=== PATIENT | female | born 1965 | race Caucasian/White ===

== ENCOUNTER 2018-03-07 10:34 | Day surgery (SDC) | payer MEDICAID ==
[2018-02-27 11:50] LABS: CLARITY,URINE SLIGHTLY CLOUDY (Clear); COLOR,URINE YELLOW (Yellow); GLUCOSE, URINE NEGATIVE (Neg); KETONES,URINE NEGATIVE (Neg); LEUKOCYTE ESTERASE ,URINE NEGATIVE (Neg); NITRITES, URINE NEGATIVE (Neg); OCCULT BLOOD,URINE TRACE-INTACT (Neg); PROTEIN,URINE NEGATIVE (Neg); UROBILINOGEN,URINE 0.2 E.U/dL (0.2-1.0)
[2018-02-27 11:57] LABS: BASOPHILS % (AUTO) 0.1 % (0-1); EOSINOPHILS # (AUTO) 0.3 X10'3 (0-0.9); EOSINOPHILS % (AUTO) 2.3 % (0-6); LYMPHOCYTES # (AUTO) 2.3 X10'3 (1.1-4.8); LYMPHOCYTES % (AUTO) 18.8 % (21-51); MEAN CORPUSCULAR HEMOGLOBIN 28.9 PG (27.0-31.0); MEAN CORPUSCULAR HGB CONC 32.8 % (33.0-36.5); MEAN PLATELET VOLUME 8.6 FL (7.4-10.4); MONOCYTES # (AUTO) 0.4 X10'3 (0-0.9); NEUTROPHILS # (AUTO) 9.4 X10'3 (1.8-7.7); NEUTROPHILS % (AUTO) 75.8 % (42-75); PRE OP HEMATOCRIT 44.2 % (35.0-45.0); PRE OP HEMOGLOBIN 14.5 g/dL (12.0-16.0); PRE OP PLATELET COUNT 338 X10'3 (140-440); RED BLOOD COUNT 5.02 X10'6 (4.20-5.60); RED CELL DISTRIBUTION WIDTH 14.2 % (11.5-14.5)
[2018-02-27 12:04] LABS: UA COLLECTION TYPE CLN CATCH MIDSTREAM
[2018-02-27 12:04] LABS: ALBUMIN 3.8 G/DL (3.4-5.0); ALBUMIN/GLOBULIN RATIO 0.9 (1.1-1.5); ALKALINE PHOSPHATASE 115 IU/L (46-116); BLOOD UREA NITROGEN 11 MG/DL (7-18); BUN/CREATININE RATIO 11.3 (6.6-38.0); CALCIUM 9.4 MG/DL (8.5-10.1); CHLORIDE 102 MMOL/L (99-107); CREATININE 0.97 MG/DL (0.40-0.90); PRE OP ALT 38 U/L (30-65); PRE OP ANION GAP 14 (8-16); PRE OP AST 19 U/L (10-37); PRE OP BILIRUB, TOTAL 0.4 MG/DL (0.0-1.0); PRE OP GLUCOSE 103 MG/DL (70-104); PRE OP POTASSIUM 4.1 MMOL/L (3.4-5.1); PRE OP SODIUM 138 MMOL/L (135-145); TOTAL CARBON DIOXIDE 21.9 MMOL/L (24-32); TOTAL PROTEIN 7.9 G/DL (6.4-8.2); eGFR 61 ML/MIN
[2018-02-27 12:05] LABS: BACTERIA,URINE 2+ /HPF (Neg); HYALINE CASTS 0-3 /LPF (NEGATIVE); MUCUS STRANDS FEW /LPF (Neg); RBC,URINE 0-2 /HPF (0-2); SQUAMOUS EPITHELIAL CELL,UR MANY /LPF (FEW); WBC,URINE 0-4 /HPF (0-4)
[2018-03-07] VITALS (13 sets, daily range): BP systolic 130–161; BP diastolic 51–113
[~2018-03-07] VITALS: Ht 160 cm; Wt 110.2 kg
[~2018-03-07 10:34] MED LIST: ASPI-842 PO; ATOR40TA PO; CHOL10002 PO; CYCL-1 PO; FISH12002 PO; LISI40TA4 PO; LORA10TA7 PO; TRAM50TA2 PO; clindamycin 600mg/D5W 50ml 50 ML IV ONE; famotidine 20mg tablet PO ONE; ringers solution, lacted 1,000 ML IV SCH
[2018-03-07] MEDS ORDERED: BUPIVAcaine/PF 2.5mg/ml (0.25%) 10ml vial ONE (12:09)
[2018-03-07] MEDS ORDERED: triamcinolone acetonide 40mg/ml inj ONE (12:09)
[2018-03-07] MEDS ORDERED: sevoflurane 250ml liquid IH ONE (12:13)
[2018-03-07] MEDS ORDERED: dexamethasone sod phosphate 4mg/ml inj. ONE (12:17)
[2018-03-07] MEDS ORDERED: fentaNYL/PF 50MCG/1 ML 2ML syringe ONE (12:17)
[2018-03-07] MEDS ORDERED: midazolam 2 mg/2 ml injection ONE (12:17)
[2018-03-07] MEDS ORDERED: ondansetron/PF 4mg/2ml inj ONE (12:17)
[2018-03-07] MEDS ORDERED: propofol inj 20 ML IV ONE ×2 (12:17→12:44)
[2018-03-07] MEDS ORDERED: LIDOcaine 2% (20mg/ml) 5ml vial ONE (12:18)
[2018-03-07] MEDS ORDERED: vancomycin 1,000mg inj ONE ×2 (12:19)
--- NOTE | 2018-03-07 13:27 | NUR ---
Received from OR via [facility] , accompanied by Anesthesiologist KACEY and report given by Anesthesiolgist. PATIENT WITH 20G PIV IN RIGHT HAND RUNNING LR AT 100. PATIENT WITH 10L MASK ON WITH 97% SATURATIONS. DENIES PAIN. KNEE WRAP IS CDI TO RIGHT AND HAS + DP. Addendum: 03/07/18 at 1340 by Juan Newberry RN, RN Amended: Links added.
[2018-03-07] MEDS ORDERED: labetalol 20mg/4ml (5mg/ml) syringe IV PRN (14:15)
[2018-03-07] MEDS ORDERED: fentaNYL/PF 50MCG/1 ML 2ML syringe IV PRN (14:15)
[2018-03-07] MEDS ORDERED: HYDROmorphone inj. 0.5 MG/0.5 ML DISP.SYRIN IV PRN ×2 (14:15)
[2018-03-07] MEDS ORDERED: hydrALAZINE 20mg/ml inj. IV PRN (14:15)
[2018-03-07] MEDS ORDERED: ondansetron/PF 4mg/2ml inj IV PRN (14:15)
[2018-03-07] MEDS ORDERED: ringers solution, lacted 1,000 ML IV SCH (14:15)
[2018-03-07] MEDS: fentaNYL/PF 50MCG/1 ML 2ML syringe IV PRN ×2 (14:26→14:37)
--- NOTE | 2018-03-07 14:54 | NUR ---
BG OF 125 Addendum: 03/07/18 at 1457 by Juan Astudillo - RANDOLPH RN Amended: Links added.
--- NOTE | 2018-03-07 15:17 | NUR ---
ALL DC CRITERIA HAS BEEN MET. IV TAKEN OUT WITHOUT COMPLICATIONS. ALL INSTRUCTIONS COVERED AND ALL QUESTIONS ANSWERED. DRESSINGS CDI. OUT VIA WHEELCHAIR TO PERSONAL VEHICLE WHERE PATIENT WAS SECURED IN AND DRIVEN HOME BY FAMILY. Addendum: 03/07/18 at 1529 by Juan Newberry RN, RN Amended: Links added.
== END 2018-03-07 15:17 | disposition home or self-care (01) ==
LOC: PAS 10:34
PROVIDERS: ATTEND Orthopaedic Surgery
DX: M22.41 Chondromalacia patellae, right knee (principal); M22.8X1 Other disorders of patella, right knee; E78.5 Hyperlipidemia, unspecified; E66.01 Morbid (severe) obesity due to excess calories; E11.51 Type 2 diabetes mellitus with diabetic peripheral angiopathy without gangrene; M17.0 Bilateral primary osteoarthritis of knee; G89.4 Chronic pain syndrome; M23.221 Derangement of posterior horn of medial meniscus due to old tear or injury, right knee; M23.261 Derangement of other lateral meniscus due to old tear or injury, right knee; E78.00 Pure hypercholesterolemia, unspecified; E11.22 Type 2 diabetes mellitus with diabetic chronic kidney disease; I12.9 Hypertensive chronic kidney disease with stage 1 through stage 4 chronic kidney disease, or unspecified chronic kidney disease; N18.2 Chronic kidney disease, stage 2 (mild); M79.7 Fibromyalgia; K21.9 Gastro-esophageal reflux disease without esophagitis; M06.9 Rheumatoid arthritis, unspecified; J45.998 Other asthma; Z68.41 Body mass index [BMI] 40.0-44.9, adult; Z91.012 Allergy to eggs; Z87.2 Personal history of diseases of the skin and subcutaneous tissue; Z87.09 Personal history of other diseases of the respiratory system; Z79.1 Long term (current) use of non-steroidal anti-inflammatories (NSAID); Z79.891 Long term (current) use of opiate analgesic; Z79.82 Long term (current) use of aspirin; Z88.5 Allergy status to narcotic agent; Z88.0 Allergy status to penicillin; Z88.2 Allergy status to sulfonamides; Z90.89 Acquired absence of other organs; Z87.891 Personal history of nicotine dependence; Z79.899 Other long term (current) drug therapy; Z98.890 Other specified postprocedural states
CPT/HCPCS: 29873; 29879; 29880; 36415; 80053; 81001; 82948; 85025; 93005; A6449; J1100; J1170; J2001; J2250; J2405; J2704; J3010; J3301; J3370; J3490; A6250; A7000; J7030; J7120

== ENCOUNTER 2018-04-09 14:48 | Emergency (ER) | payer MEDICAID ==
[~2018-04-09] VITALS: Ht 165.1 cm; Wt 112.7 kg
[~2018-04-09 14:48] MED LIST changes: -clindamycin 600mg/D5W 50ml 50 ML IV ONE; -famotidine 20mg tablet PO ONE; -ringers solution, lacted 1,000 ML IV SCH
[2018-04-09 15:02] VITALS: BP 144/100
[2018-04-09] MEDS ORDERED: HYDROcodone/acetaminophen 5mg/325mg tablet PO ONE (16:25)
== END 2018-04-09 17:41 | disposition home or self-care (01) ==
LOC: ER 14:48
DX: M25.461 Effusion, right knee (principal); I10 Essential (primary) hypertension; Z90.89 Acquired absence of other organs; Z90.710 Acquired absence of both cervix and uterus; Z88.5 Allergy status to narcotic agent; Z88.0 Allergy status to penicillin; Z88.2 Allergy status to sulfonamides; Z79.82 Long term (current) use of aspirin; Z79.899 Other long term (current) drug therapy
CPT/HCPCS: 93971; 99284

== ENCOUNTER 2021-08-18 13:05 | Emergency (ER) | payer MEDICAID ==
[~2021-08-18] VITALS: Ht 161.3 cm; Wt 86.4 kg
[~2021-08-18 13:05] MED LIST changes: +LISI40TA13 PO; -LISI40TA4 PO
[2021-08-18 13:09] VITALS: BP 165/109
[2021-08-18] MEDS ORDERED: DOXY100C77 PO (14:29)
[2021-08-18] MEDS ORDERED: PRED20TA PO (14:29)
[2021-08-18] MEDS ORDERED: ALBU6.7H9 INH (14:29)
== END 2021-08-18 14:42 | disposition home or self-care (01) ==
LOC: ER 13:05
DX: J20.9 Acute bronchitis, unspecified (principal); F17.200 Nicotine dependence, unspecified, uncomplicated; I10 Essential (primary) hypertension; Z88.5 Allergy status to narcotic agent; Z88.0 Allergy status to penicillin; Z88.2 Allergy status to sulfonamides; Z79.899 Other long term (current) drug therapy
CPT/HCPCS: 71046; 99283